=== PATIENT | female | born 1970 | race Caucasian/White ===

== ENCOUNTER 2022-04-29 05:43 | Emergency (ER) | payer OTHER ==
[2022-04-29] MEDS ORDERED: Haloperidol Lactate 5 MG/ML VIAL ONE (06:13)
[2022-04-29 07:06] LABS: #Basophils 0.1 thou/uL (0.0-0.2); #Monocytes 0.2 thou/uL (0.11-0.59); #Neutrophils 8.5 thou/uL (1.40-6.50); %Basophils 0.5 % (0.0-1.0); %Eosinophils 0.4 % (0.0-10.0); %Lymphocytes 10.1 % (21.0-51.0); Hemoglobin 13.5 g/dL (12.0-16.0); Mean Corpuscular HGB CONC 33.3 g/dL (32.0-36.0); Mean Corpuscular Hemoglobin 29.9 pg (27.0-31.0); Mean Corpuscular Volume 89.9 fL (78.0-98.0); Mean Platelet Volume 7.8 fL (7.4-10.4); Platelet Count 202 thou/uL (130-400); RBC Distribution Width 12.4 % (11.5-14.5); Red Blood Cell (RBC) Count 4.51 mill/uL (4.20-5.40); White Blood Cell (WBC) Count 9.8 thou/uL (4.8-10.8)
[2022-04-29 07:12] LABS: BHCG - Serum Negative (NEGATIVE); Pregs Control Background? CLEAR/WHITE (CLR/WHITE); Pregs Control Bar Appear? YES (CONTROL BAR)
[2022-04-29 08:32] LABS: Albumin 4.1 g/dL (3.5-5.0)
[2022-04-29 08:34] LABS: Calcium 8.9 mg/dL (7.8-10.44); Chloride 107 mmol/L (98-107); Potassium 3.4 mmol/L (3.5-5.1); Sodium 139 mmol/L (136-145)
[2022-04-29 08:35] LABS: Globulin 2.5 g/dL (2.4-3.5); Glucose 110 mg/dL (70-105); Protein, Total 6.6 g/dL (6.0-8.3)
[2022-04-29 08:37] LABS: Anion Gap 15 mmol/L (10-20); Bilirubin, Total 1.5 mg/dL (0.2-1.2); Carbon Dioxide 20 mmol/L (22-29)
[2022-04-29 08:38] LABS: Alkaline Phosphatase 78 U/L (40-110)
[2022-04-29 08:39] LABS: BUN (Urea Nitrogen) 15 mg/dL (9.8-20.1); Calc. Creatinine Clearance 0 mL/min (70-130); Estimated GFR 93
[2022-04-29 08:40] LABS: AST (SGOT) 100 U/L (5-34)
[2022-04-29 08:41] LABS: ALT (SGPT) 34 U/L (8-55); Lipase 38 U/L (8-78)
[2022-04-29] MEDS ORDERED: Potassium Chloride 20 MEQ TAB ONE (11:17)
[2022-04-29] MEDS ORDERED: Iopamidol 370 76% 100 ML VIAL ONE (14:28)
== END 2022-04-29 11:25 | disposition home or self-care (01) ==
LOC: ERS 05:43
DX: R11.2 Nausea with vomiting, unspecified (principal); R10.10 Upper abdominal pain, unspecified; R10.816 Epigastric abdominal tenderness; R10.811 Right upper quadrant abdominal tenderness
CPT/HCPCS: 36415; 74177; 76705; 80053; 83690; 84703; 85025; 93005; 96361; 96374; J1630; Q9967

== ENCOUNTER 2022-07-14 16:09 | Emergency (ER) | payer SELFPAY ==
[~2022-07-14 16:09] MED LIST: Iopamidol-370 76% 500 ML 1 ML ONE
[2022-07-14] MEDS ORDERED: Ondansetron PF 4 MG/2 ML Vial ONE (16:20)
[2022-07-14 17:08] LABS: #Basophils 0.1 thou/uL (0.0-0.2); #Lymphocytes 1.8 thou/uL (1.20-3.40); #Monocytes 0.4 thou/uL (0.11-0.59); #Neutrophils 9.3 thou/uL (1.40-6.50); %Basophils 0.5 % (0.0-1.0); %Eosinophils 0.2 % (0.0-10.0); %Lymphocytes 15.6 % (21.0-51.0); %Monocytes 3.3 % (0.0-10.0); %Neutrophils 80.5 % (42.0-75.0); Hemoglobin 14.7 g/dL (12.0-16.0); Mean Corpuscular HGB CONC 32.8 g/dL (32.0-36.0); Mean Corpuscular Hemoglobin 29.5 pg (27.0-31.0); Mean Platelet Volume 7.6 fL (7.4-10.4); Platelet Count 265 10x3/uL (130-400); RBC Distribution Width 12.1 % (11.5-14.5); Red Blood Cell (RBC) Count 4.97 mill/uL (4.20-5.40); White Blood Cell (WBC) Count 11.6 10x3/uL (4.8-10.8)
[2022-07-14 17:14] LABS: BHCG - Serum Negative (NEGATIVE); Pregs Control Background? CLEAR/WHITE (CLR/WHITE); Pregs Control Bar Appear? YES (CONTROL BAR)
[2022-07-14 17:28] LABS: ALT (SGPT) 17 U/L (8-55); AST (SGOT) 22 U/L (5-34); Albumin 4.7 g/dL (3.5-5.0); Alkaline Phosphatase 80 U/L (40-110); Anion Gap 17 mmol/L (10-20); BUN (Urea Nitrogen) 14 mg/dL (9.8-20.1); Bilirubin, Total 0.7 mg/dL (0.2-1.2); Calc. Creatinine Clearance 0 mL/min (70-130); Carbon Dioxide 21 mmol/L (22-29); Chloride 106 mmol/L (98-107); Estimated GFR 89; Globulin 3.1 g/dL (2.4-3.5); Glucose 141 mg/dL (70-105); Lipase 12 U/L (8-78); Potassium 3.9 mmol/L (3.5-5.1); Protein, Total 7.8 g/dL (6.0-8.3); Sodium 140 mmol/L (136-145)
[2022-07-14] MEDS ORDERED: Haloperidol Lactate 5 MG/ML VIAL ONE (18:14)
== END 2022-07-14 20:46 | disposition home or self-care (01) ==
LOC: ERS 16:09
DX: K80.20 Calculus of gallbladder without cholecystitis without obstruction (principal); R11.2 Nausea with vomiting, unspecified
CPT/HCPCS: 36415; 74177; 80053; 83690; 84703; 85025; 96361; 96374; 96375; J1630; J2405; Q9967

== ENCOUNTER 2023-10-03 22:48 | Inpatient (IN) | payer OTHER, SELFPAY ==
[2023-10-03 23:31] LABS: #Monocytes 0.3 thou/uL (0.11-0.59); #Neutrophils 12.4 thou/uL (1.40-6.50); %Basophils 0.2 % (0.0-1.0); %Lymphocytes 8.3 % (21.0-51.0); %Monocytes 2.4 % (0.0-10.0); %Neutrophils 88.9 % (42.0-75.0); Hematocrit 41.4 % (36.0-47.0); Hemoglobin 14.1 g/dL (12.0-16.0); Mean Corpuscular HGB CONC 34.1 g/dL (32.0-36.0); Mean Corpuscular Hemoglobin 29.5 pg (27.0-31.0); Mean Corpuscular Volume 86.6 fl (78.0-98.0); Mean Platelet Volume 10.1 fL (7.4-10.4); Platelet Count 274 10x3/uL (130-400); RBC Distribution Width 13.2 % (11.5-14.5); Red Blood Cell (RBC) Count 4.78 mill/uL (4.20-5.40)
[2023-10-03] MEDS ORDERED: Morphine 4 MG/ML VIAL ONE (23:31)
[2023-10-03] MEDS ORDERED: Ondansetron PF 4 MG/2 ML Vial ONE (23:31)
[2023-10-03 23:55] LABS: ALT (SGPT) 13 U/L (8-55); AST (SGOT) 19 U/L (5-34); Albumin 5.1 g/dL (3.5-5.0); Alkaline Phosphatase 76 U/L (40-110); Anion Gap 17 mmol/L (10-20); BUN (Urea Nitrogen) 15 mg/dL (9.8-20.1); Bilirubin, Total 0.7 mg/dL (0.2-1.2); Calc. Creatinine Clearance 0 mL/min (70-130); Calcium 10.5 mg/dL (7.8-10.44); Carbon Dioxide 23 mmol/L (22-29); Chloride 103 mmol/L (98-107); Estimated GFR 78; Globulin 3.4 g/dL (2.4-3.5); Glucose 158 mg/dL (70-105); Lipase 7 U/L (8-78); Potassium 3.8 mmol/L (3.5-5.1); Protein, Total 8.5 g/dL (6.0-8.3); Sodium 139 mmol/L (136-145)
[2023-10-03 23:57] LABS: Troponin I Less than 0.010 ng/mL (< 0.028)
[2023-10-04] MEDS ORDERED: Ondansetron PF 4 MG/2 ML Vial ONE (01:28)
[2023-10-04 02:05] LABS: Bacteria/HPF None Seen HPF (None Seen); Bilirubin Negative (Negative); Blood, Urine 2+ (Negative); CAUTI Indications for Culture Pelvic or flank pain; Clarity Clear (Clear); Glucose, Urine (Dipstick) 50 mg/dL (Negative); Ketone, Urine 20 mg/dL (Negative); Leukocyte Negative Leu/uL (Negative); Mucous/LPF Rare LPF (<2+); Nitrite Negative (Negative); Protein, Urine (Dipstick) 70 mg/dL (Neg-Trace); Specific Gravity, Urine 1.028 (1.002-1.036); Squamous Epithelial None Seen HPF (0-3); Urobilinogen Normal mg/dL (Less than 2); WBC/HPF 0-3 HPF (0-3)
[2023-10-04 02:07] LABS: Urine Culture Reflex No No
[2023-10-04] MEDS ORDERED: Dicyclomine 20 MG/2 ML VIAL ONE (02:58)
[2023-10-04] MEDS ORDERED: fentaNYL 50 mcg/mL 1 mL Vial ONE (03:38)
[2023-10-04] MEDS ORDERED: Ketorolac Tromethamine 30 MG (1 mL) VIAL ONE (03:38)
[2023-10-04] MEDS: cefTRIAXone\\ROCEPHIN 2 GM in Sodium Chloride 0.9% 100 ML IVPB SCH (09:04)
[2023-10-04] MEDS: metroNIDAZOLE 500 MG in Premix 1 BAG IVPB SCH (09:07)
[2023-10-04] MEDS ORDERED: Fentanyl 100 MCG/2 ML VIAL SLOW IVP PRN (09:20)
[2023-10-04] MEDS ORDERED: Ondansetron PF 4 MG/2 ML Vial IVP PRN ×2 (09:30→18:18)
[2023-10-04] MEDS ORDERED: Ondansetron ODT 4 MG TAB SL PRN (09:30)
[2023-10-04 09:58] LABS: HBCM Index 0.06 S/CO (0-0.79); HBSAg Index 0.23 S/CO (0-0.99); Hep A IgM AB Non-Reactive S/CO (NonReactive); Hep A IgM S/CO 0.13 S/CO (0-0.79); Hep B Surf Ag Non-Reactive S/CO (NonReactive); Hep C IgG Ab Non-Reactive S/CO (NonReactive); Hepatitis B Core IgM Abs Non-Reactive S/CO (NonReactive)
[2023-10-04] MEDS: Lactated Ringer's 1,000 ML IV SCH (10:45)
[2023-10-04 11:13] VITALS: BMI 21.7
[2023-10-04] MEDS ORDERED: Iopamidol-370 76% 500 ML MDV (1 ML CHARGE) ONE (12:19)
[2023-10-04] MEDS ORDERED: Sterile Water 10 ML ONE (13:38)
[2023-10-04] MEDS ORDERED: Sincalide 5 MCG VIAL ONE (13:38)
[2023-10-04] MEDS: Ketorolac Tromethamine 30 MG (1 mL) VIAL IVP SCH (15:25)
[2023-10-04] MEDS ORDERED: Morphine 2 MG/ML VIAL ONE (16:25)
[2023-10-04] MEDS ORDERED: Ondansetron ODT 4 MG TAB PO PRN (18:18)
[2023-10-04] MEDS ORDERED: Ketorolac Tromethamine 30 MG (1 mL) VIAL IVP PRN (18:27)
[2023-10-04] MEDS: traMADol HCl 50 MG TAB PO PRN (20:55)
[2023-10-05] MEDS: Morphine 2 MG/ML VIAL SLOW IVP PRN (06:37)
[2023-10-06 04:39] LABS: #Basophils 0.1 thou/uL (0.0-0.2); #Eosinphils 0.1 thou/uL (0.0-0.7); #Monocytes 0.7 thou/uL (0.11-0.59); #Neutrophils 5.3 thou/uL (1.40-6.50); %Basophils 0.6 % (0.0-1.0); %Eosinophils 0.7 % (0.0-10.0); %Lymphocytes 31.1 % (21.0-51.0); %Monocytes 8.2 % (0.0-10.0); %Neutrophils 59.1 % (42.0-75.0); Hematocrit 36.7 % (36.0-47.0); Hemoglobin 12.3 g/dL (12.0-16.0); Mean Corpuscular HGB CONC 33.5 g/dL (32.0-36.0); Mean Corpuscular Hemoglobin 29.8 pg (27.0-31.0); Mean Corpuscular Volume 88.9 fl (78.0-98.0); Mean Platelet Volume 10.1 fL (7.4-10.4); Platelet Count 191 10x3/uL (130-400); RBC Distribution Width 13.1 % (11.5-14.5); Red Blood Cell (RBC) Count 4.13 mill/uL (4.20-5.40)
[2023-10-06 05:43] LABS: ALT (SGPT) 17 U/L (8-55); AST (SGOT) 22 U/L (5-34); Alkaline Phosphatase 53 U/L (40-110); Anion Gap 10 mmol/L (10-20); BUN (Urea Nitrogen) 12 mg/dL (9.8-20.1); Bilirubin, Total 0.6 mg/dL (0.2-1.2); Calc. Creatinine Clearance 106 mL/min (70-130); Calcium 9.1 mg/dL (7.8-10.44); Carbon Dioxide 29 mmol/L (22-29); Chloride 105 mmol/L (98-107); Estimated GFR 99; Globulin 2.6 g/dL (2.4-3.5); Glucose 107 mg/dL (70-105); Potassium 3.4 mmol/L (3.5-5.1); Protein, Total 6.6 g/dL (6.0-8.3); Sodium 141 mmol/L (136-145)
[2023-10-06] MEDS ORDERED: PROPOFOL 200 MG/20 ML VIAL ONE (11:52)
[2023-10-06] MEDS ORDERED: Lidocaine 1% PF 5 ML VIAL ONE (11:52)
[2023-10-06] MEDS: Potassium Chloride 20 MEQ TAB PO SCH (15:26)
[2023-10-06 15:54] VITALS: BP 132/83; TEMP 98
== END 2023-10-06 16:15 | disposition home or self-care (01) | DRG 446 ==
LOC: ERS 22:48 → ERHOLD 10-04 05:27 → SJJU 10-04 08:03 → OBSVTOIN 10-06 08:00
PROVIDERS: ADMIT Surgery; ATTEND Surgery
PROC: 0DJ08ZZ Inspection of Upper Intestinal Tract, Via Natural or Artificial Opening Endoscopic (ICD-10-PCS; principal; 2023-10-06)
DX: K80.20 Calculus of gallbladder without cholecystitis without obstruction (principal); K44.9 Diaphragmatic hernia without obstruction or gangrene; F41.9 Anxiety disorder, unspecified; F32.A Depression, unspecified; Z79.899 Other long term (current) drug therapy; Z88.0 Allergy status to penicillin; Z88.2 Allergy status to sulfonamides; Z88.1 Allergy status to other antibiotic agents; Z98.890 Other specified postprocedural states; Z87.891 Personal history of nicotine dependence; Z90.89 Acquired absence of other organs
CPT/HCPCS: 36415; 36416; 74177; 76705; 78226; 80053; 80074; 81001; 83690; 84484; 85025; 93005; 96361; 96365; 96367; 96372; 96374; 96375; 96376; A9537; G0378; J0696; J1885; J2270; J2272; J2405; J2704; J2805; J3010; J3490; J7120; Q9967

== ENCOUNTER 2024-09-13 09:22 | Outpatient (CLI) | payer OTHER | END 2024-09-13 09:23 | disposition home or self-care (01) | LOC: BICMAMMO 09:22 | PROVIDERS: ATTEND Emergency Medicine | DX: Z12.31 Encounter for screening mammogram for malignant neoplasm of breast (principal); Z91.89 Other specified personal risk factors, not elsewhere classified | CPT/HCPCS: 77063; 77067 ==